=== PATIENT | female | born 1930 | race Caucasian/White ===

== ENCOUNTER 2017-11-20 18:40 | Emergency (ER) | payer OTHER, BC ==
[~2017-11-20] VITALS: Ht 147.3 cm; Wt 75.0 kg
[~2017-11-20 18:40] MED LIST: AMARYL4 MG PO; Amaryl PO; Aspirin E.C. PO; BIMATOPROST2.5 ML BOTH EYES; COMBIGAN O20 DROP/5 BOTH EYES; CRESTOR20 MG PO; Caltrate 600/400 PO; EVISTA60 MG PO; Evista PO; JANUVIA25 M1 PO; Januvia PO; Lumigan 0.03% Ophth BOTH EYES; Neurontin PO; OCUVITE TABLET1 EACH PO; Ocuvite PO; PERCOCET 5/31 TABLET PO; PRILOSEC40 MG PO; Percocet 5/325,Endoc PO; ROBAXIN750 MG PO; VITAMIN D22000 UNIT PO; XARELTO15 MG PO; XARELTO20 MG PO
[2017-11-20 19:46] LABS: HEMATOCRIT 36.8 % (36.0-46.0); HEMOGLOBIN 12.2 G/DL (11.9-15.5); MCH 31.6 PG (29.0-34.0); MCHC 33.2 G/DL (30.0-36.0); MCV 95.3 FL (83-99); PLATELET COUNT 222 K/uL (156-360); RBC DIS.WIDTH-CV 14.2 % (11.8-14.6); RBC DIS.WIDTH-SD 49.7 % (39-53); RED BLOOD COUNT 3.86 M/uL (3.80-5.20); WHITE BLOOD COUNT 7.6 K/uL (4.1-10.2)
[2017-11-20 19:59] LABS: ALBUMIN 4.1 g/dL (3.2-4.8); CHLORIDE 106 mEq/L (99-109); POTASSIUM 5.9 mEq/L (3.7-5.4); SODIUM 141 mEq/L (136-147)
[2017-11-20 20:02] LABS: GLUCOSE 110 mg/dL (70-99); TOTAL PROTEIN 7.2 g/dL (6.4-8.3)
[2017-11-20 20:04] LABS: TOTAL BILIRUBIN 0.3 mg/dL (0.0-1.0)
[2017-11-20 20:05] LABS: ALKALINE PHOSPHATASE 103 IU/L (3-129); CREATININE 1.2 mg/dL (0.6-1.3); GFR ESTIMATE (CALCULATED) 45 mL/min/
[2017-11-20 20:06] LABS: UREA NITROGEN (BUN) 36 mg/dL (9-23)
[2017-11-20 20:07] LABS: AST (GOT) 26 IU/L (2-34)
[2017-11-20 20:08] LABS: ALT (GPT) 13 IU/L (3-49)
[2017-11-20 20:10] LABS: TROP-I INTERPRETATION NEGATIVE; TROPONIN-I < 0.01 ng/mL (0.0-0.30)
[2017-11-20 22:06] LABS: APPEARANCE CLEAR ((CLEAR)); BILIRUBIN NEGATIVE; BLOOD NEGATIVE; COLOR STRAW ((YELLOW)); GLUCOSE (STRIP) NEGATIVE; KETONES NEGATIVE; LEUKOCYTES NEGATIVE; NITRITE NEGATIVE; PROTEIN (STRIP) NEGATIVE; SPECIFIC GRAVITY 1.006 (1.000-1.030); UROBILINOGEN 0.2 MG/DL (0.2-1.0)
[2017-11-20 23:39] LABS: CHLORIDE 109 mEq/L (99-109); POTASSIUM 4.8 mEq/L (3.7-5.4); SODIUM 142 mEq/L (136-147)
[2017-11-20 23:40] LABS: GLUCOSE 104 mg/dL (70-99)
[2017-11-20 23:44] LABS: GFR ESTIMATE (CALCULATED) 55 mL/min/
[2017-11-20 23:45] LABS: UREA NITROGEN (BUN) 34 mg/dL (9-23)
[2017-11-21 01:04] VITALS: BP 205/92
== END 2017-11-21 01:06 | disposition home or self-care (01) ==
LOC: EME 18:40
PROVIDERS: Emergency Medicine
PROC: 0HQEXZZ Repair Left Lower Arm Skin, External Approach (ICD-10-PCS; principal; 2017-11-21)
DX: S61.512A Laceration without foreign body of left wrist, initial encounter (principal); E87.5 Hyperkalemia; E86.0 Dehydration; W26.8XXA Contact with other sharp object(s), not elsewhere classified, initial encounter; Y92.000 Kitchen of unspecified non-institutional (private) residence as the place of occurrence of the external cause; Z79.82 Long term (current) use of aspirin; E11.22 Type 2 diabetes mellitus with diabetic chronic kidney disease; I12.9 Hypertensive chronic kidney disease with stage 1 through stage 4 chronic kidney disease, or unspecified chronic kidney disease; N18.9 Chronic kidney disease, unspecified; Z79.84 Long term (current) use of oral hypoglycemic drugs; E78.5 Hyperlipidemia, unspecified; K21.9 Gastro-esophageal reflux disease without esophagitis; H40.9 Unspecified glaucoma; G89.29 Other chronic pain; Z88.8 Allergy status to other drugs, medicaments and biological substances; Z87.891 Personal history of nicotine dependence
CPT/HCPCS: 71045; 80048 91; 80053; 81003; 84484; 85027; 93005; 99281; 99285; J7030

== ENCOUNTER → 2017-12-12 | Outpatient (CLI) | payer OTHER, BC | END | disposition home or self-care (01) | LOC: AMB 13:56 | DX: S40.022A Contusion of left upper arm, initial encounter (principal); S41.102A Unspecified open wound of left upper arm, initial encounter; W19.XXXA Unspecified fall, initial encounter; Y93.9 Activity, unspecified; Y92.9 Unspecified place or not applicable; Y99.9 Unspecified external cause status ==